=== PATIENT | male | born 1945 | race Caucasian/White ===

== ENCOUNTER → 2018-03-10 | Outpatient (CLI) | payer OTHER | END | disposition home or self-care (01) | DX: M17.12 Unilateral primary osteoarthritis, left knee (principal); R26.2 Difficulty in walking, not elsewhere classified; M25.562 Pain in left knee; M25.662 Stiffness of left knee, not elsewhere classified; Z74.1 Need for assistance with personal care; M62.81 Muscle weakness (generalized) | CPT/HCPCS: 97161 GP; 97165 GO; 97530 GP; 97535 GO; G8978 GP; G8979 GP; G8980 GP; G8987 GO; G8988 GO; G8989 GO ==

== ENCOUNTER 2018-04-12 22:00 | Inpatient (IN) | payer OTHER ==
[~2018-04-12] VITALS: Ht 180.3 cm; Wt 106.5 kg
[~2018-04-12 22:00] MED LIST: AVODART0.5 MG PO; AXID150 MG PO; AZOR 5/20 MG1 TABLET PO; CELEBREX100 MG PO; FLOVENT DISKUS1 DIS2 IH; LO-DOSE ASPIRIN81 M1 PO; MAXZIDE 37.5 M1 EACH PO; PRAVACHOL40 MG PO; PROAIR HFA8.5 GM IH; ULTRAM50 MG PO
[2018-04-13 06:15] VITALS: BP 130/77
[2018-04-13 09:56] LABS: HEMATOCRIT 44.1 % (38.0-50.0); HEMOGLOBIN 14.4 G/DL (12.5-16.6); MCH 29.7 PG (29.0-34.0); MCHC 32.7 G/DL (30.0-36.0); MCV 90.9 FL (86-99); PLATELET COUNT 186 K/uL (156-360); RBC DIS.WIDTH-CV 13.2 % (11.8-14.6); RBC DIS.WIDTH-SD 44.7 % (39-53); RED BLOOD COUNT 4.85 M/uL (4.00-5.50); WHITE BLOOD COUNT 6.8 K/uL (4.1-10.2)
[2018-04-13 11:00] VITALS: BP 133/75
[2018-04-13 13:57] VITALS: BP 122/72
[2018-04-13 17:22] VITALS: BP 145/78
[2018-04-13 19:39] VITALS: BP 156/74
[2018-04-14] VITALS: BP 156/83
[2018-04-14 03:57] VITALS: BP 136/78
[2018-04-14 05:34] LABS: HEMATOCRIT 43.5 % (38.0-50.0); MCV 91.6 FL (86-99)
[2018-04-14 05:59] LABS: CHLORIDE 103 MEQ/L (99-109); GFR ESTIMATE (CALCULATED) > 59 mL/min/ (58.99-99999); GLUCOSE 132 mg/dL (70-99); POTASSIUM 3.9 MEQ/L (3.7-5.4); SODIUM 138 MEQ/L (136-147); UREA NITROGEN (BUN) 17 mg/dL (9-23)
[2018-04-14 08:00] VITALS: BP 149/74
[2018-04-14 12:08] VITALS: BP 138/73
[2018-04-14 15:41] VITALS: BP 133/71
[2018-04-14 20:15] VITALS: BP 164/72
[2018-04-15 00:05] VITALS: BP 131/68
[2018-04-15 04:07] VITALS: BP 132/63
[2018-04-15 07:24] LABS: HEMATOCRIT 45.8 % (38.0-50.0); MCV 90.3 FL (86-99)
[2018-04-15 08:20] VITALS: BP 126/68
[2018-04-15] MEDS ORDERED: SENNA PLUS TAB1 EACH PO (08:51)
[2018-04-15] MEDS ORDERED: LOVENOX40 MG/0.4 SC (08:51)
[2018-04-15] MEDS ORDERED: ENDOCET 5-3251 EACH PO (08:51)
[2018-04-15] MEDS ORDERED: CELECOXIB200 MG PO (08:51)
[2018-04-15 12:02] VITALS: BP 138/69
== END 2018-04-15 14:45 | DRG 470 ==
LOC: ENRESERV 22:00 → 2SOUTH 04-13 05:25 → 3WEST 04-13 10:19 → 2SOUTH 04-13 11:07 → 3WEST 04-15 14:45
PROVIDERS: Orthopaedic Surgery
PROC: 0SRD0J9 Replacement of Left Knee Joint with Synthetic Substitute, Cemented, Open Approach (ICD-10-PCS; principal; 2018-04-13)
DX: M17.12 Unilateral primary osteoarthritis, left knee (principal); I45.2 Bifascicular block; I10 Essential (primary) hypertension; E78.00 Pure hypercholesterolemia, unspecified; J45.909 Unspecified asthma, uncomplicated; E66.9 Obesity, unspecified; Z68.31 Body mass index [BMI] 31.0-31.9, adult; R73.03 Prediabetes; N40.0 Benign prostatic hyperplasia without lower urinary tract symptoms; I87.2 Venous insufficiency (chronic) (peripheral); K21.9 Gastro-esophageal reflux disease without esophagitis; M47.816 Spondylosis without myelopathy or radiculopathy, lumbar region; M54.16 Radiculopathy, lumbar region; J32.9 Chronic sinusitis, unspecified; M72.2 Plantar fascial fibromatosis; R12 Heartburn
CPT/HCPCS: 73560; 80048; 85014; 85018; 85027; 97530 GP; 99202; C1713; J0131; J0690; J1100; J1170; J1650; J1885; J2405; J2795; J3010; J7050; S0020

== ENCOUNTER 2018-05-08 12:49 | Emergency (ER) | payer OTHER ==
[~2018-05-08] VITALS: Ht 180.3 cm; Wt 103.0 kg
[~2018-05-08 12:49] MED LIST changes: +CELECOXIB200 MG PO; +ENDOCET 5-3251 EACH PO; +LOVENOX40 MG/0.4 SC; +SENNA PLUS TAB1 EACH PO
[2018-05-08 15:37] VITALS: BP 115/74
== END 2018-05-08 15:37 | disposition home or self-care (01) ==
LOC: EME 12:49
DX: G89.18 Other acute postprocedural pain (principal); M25.562 Pain in left knee; I10 Essential (primary) hypertension; E78.5 Hyperlipidemia, unspecified; I45.10 Unspecified right bundle-branch block; Z96.652 Presence of left artificial knee joint
CPT/HCPCS: 73564; 93971; 99281; 99284